=== PATIENT | male | born 1960 | race Caucasian/White ===

== ENCOUNTER 2016-10-31 09:49 | Observation (INO) ==
[2016-10-31] MEDS ORDERED: Aspirin 81 MG TAB.CHEW PO ONE (10:26)
--- NOTE | 2016-10-31 10:29 | Emergency Department Note ---
Disposition Clinical Impression: STEMI (ST elevation myocardial infarction) Qualifiers: Involved coronary artery: unspecified coronary artery Qualified Code(s): I21.3 - ST elevation (STEMI) myocardial infarction of unspecified site Disposition: Admitted As Inpatient Condition: Fair Time of Disposition: 13:00 Chest Pain HPI - General Chief Complaint: ED Recheck/Abnormal Lab/Rx Stated Complaint: OLEGARIO, sent from [facility] Time Seen by Provider: 10/31/16 10:10 Source: patient Mode of arrival: ambulatory Limitations: no limitations Vital Signs Reviewed: Yes Nursing Notes Reviewed: Yes - History of Present Illness HPI Narrative: Patient presents to the emergency department with complaints of shortness of breath. He states that he went to the urgent care to get a refill on his medications. He is a diabetic he currently takes metformin 1000 mg at at bedtime. He states that this morning he states they were more concerned with his shortness of breath and also that the swelling in his lower extremities. He is a very large obese man states that the swelling appears to be about the same as it always is. Once we got him to the emergency department he now is saying that he is having a little bit of dull achy midsternal slightly to the left of the sternal chest pain that radiates into his back. Not have any nausea vomiting no diaphoresis. He does have some pedal edema approximately 2+3 +. No previous history. He did bring his EKG that they did at the urgent care and we have repeated that since and obtain the old EKG in having interventionalists evaluate the EKG at this time. 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 Duration: intermittent Onset: during rest Pain Location: substernal, left chest Severity scale (1-10): 3 Quality: dull Pain Radiation: back Improves with: nothing Worsens with: nothing Treatments prior to arrival chest pain: none - Related Data Home Medications Medication Instructions Recorded Confirmed Aspirin 81 mg PO DAILY 07/29/15 10/31/16 Cholecalciferol (Vitamin D3) 5,000 unit PO DAILY 07/29/15 10/31/16 [Vitamin D] [place] Carbonate 900 mg PO HS 07/29/15 10/31/16 Metformin HCl [Glucophage] 1,000 mg PO DAILY 07/29/15 10/31/16 Ziprasidone [Geodon] 160 mg PO HS 07/29/15 10/31/16 Oxygen 2 l NS HS 10/31/16 10/31/16 Ziprasidone HCl [Geodon] 60 mg PO QAM 10/31/16 10/31/16 Allergies Allergy/AdvReac Type Severity Reaction Status Date / Time No Known Allergies Allergy Verified 10/31/16 09:58 All systems ED: reviewed and negative except as stated. Eyes: Denies: eye pain, eye discharge, vision change ENT ED: Denies: ear pain, throat pain, dental pain, hearing loss, epistaxis, congestion, dysphagia Cardiovascular: Reports: chest pain Respiratory: Denies: cough, dyspnea, wheezes, hemoptysis, stridor Gastrointestinal: Denies: abdominal pain, nausea, vomiting, diarrhea, constipation, hematemesis, melena, hematochezia Genitourinary: Denies: urgency, dysuria, frequency, hematuria Musculoskeletal: Denies: back pain, neck pain, arthralgia, myalgia Integumentary: Denies: rash, abrasion, lesions Chest Pain PMH - Past Medical History Medical history: Reports: DVT, diabetes, hyperlipidemia, hypertension Psychiatric history: Reports: anxiety, bipolar, depression - Social History Smoking Status: Current every day smoker Alcohol use: Reports: none Drug use: Reports: none Physical Exam - General Limitations: no limitations General appearance: alert, in no apparent distress - Head Head exam: atraumatic, normocephalic, normal inspection - Eye Eye exam: Present: normal appearance, PERRL, EOMI - ENT ENT exam: normal exam, normal oropharynx, mucous membranes moist - Neck Neck exam: Present: normal inspection, full ROM, trachea midline - Respiratory Respiratory exam: Present: normal lung sounds bilaterally - Cardiovascular Cardiovascular exam: Present: regular rate, normal heart sounds. Absent: systolic murmur, diastolic murmur, JVD - Abdominal Exam Abdominal exam: Present: soft, Non-Tender, normal bowel sounds. Absent: tenderness, distention, guarding, rebound, rigidity - Extremities Exam Extremities exam: Present: normal inspection, full ROM, pedal edema (3+). Absent: tenderness Course - Reevaluation(s) Reevaluation #1: explained to the patient labs, and procedures and work-up that will happen. Patient voiced understanding. Time: 10:40 - Consultations Consultation #1: Cardiology POTATO PANCAKE FRIER in the department to evaluate patient. Dr. Layne spoke with Dr. Collins. Entire STEMI workup done. Time: 10:49 Consultation #2: Discussed with , admit. Time: 11:26 Vital Signs Temperature 98.3 F 10/31/16 09:58 Pulse Rate 72 10/31/16 09:58 Respiratory Rate 16 10/31/16 09:58 Blood Pressure 152/77 10/31/16 09:58 O2 Sat by Pulse Oximetry 94 10/31/16 09:58 Temperature 98.2 F 10/31/16 13:03 Pulse Rate 61 10/31/16 13:03 Respiratory Rate 18 10/31/16 13:03 Blood Pressure 127/60 10/31/16 13:03 O2 Sat by Pulse Oximetry 98 10/31/16 13:03 Oxygen Delivery Oxygen Delivery Nasal Cannula Chest Pain - Lab Data Result diagrams: 10/31/16 10:35 10/31/16 10:35 Lab Results 10/31/16 10/31/16 10/31/16 Range/Units 10:35 10:35 10:35 WBC 7.7 (4.3-11.1) K/mcL RBC 4.22 (4.19-5.50) M/mcL Hgb 12.3 L (12.9-16.9) g/dL Hct 39.6 (37.5-50.1) % MCV 93.8 (83.0-100.0) fL MCH 29.1 (28.0-33.3) pg MCHC 31.1 L (31.6-35.5) g/dL RDW 13.7 (11.5-14.5) % Plt Count 195 (140-400) K/mcL MPV 10.5 (9.4-12.4) fL Immature Gran % 0.3 (0-4) % Seg Neutrophils % 71.2 % Lymphocytes % 20.4 % Monocytes % 6.3 % Eosinophils % 1.7 % Basophils % 0.1 % Neutrophils # 5.5 (1.6-8.9) K/mcL Lymphocytes # 1.6 (0.6-4.6) K/mcL Monocytes # 0.5 (0.0-1.3) K/mcL Eosinophils # 0.1 (0.0-0.6) K/mcL Basophils # 0.0 (0.0-0.2) K/mcL PT 12.3 H (9.4-12.1) Seconds INR 1.1 APTT 30.3 (26.0-36.0) Seconds Sodium (136-145) mEq/L Potassium (3.5-4.5) mEq/L Chloride (98-109) mEq/L Carbon Dioxide (19-29) mEq/L BUN (8-26) mg/dL Creatinine (0.72-1.25) mg/dL Est GFR ( Amer) (> 60) Est GFR (Non-Af Amer) (> 60) BUN/Creatinine Ratio (6-26) Glucose (70-99) mg/dL Calculated Osmolality (280-300) Calcium (8.6-10.8) mg/dL Troponin I (0-0.03) ng/mL Amylase 51 (25-125) Units/L Lipase 23 (8-78) Units/L 10/31/16 10/31/16 Range/Units 10:35 10:35 WBC (4.3-11.1) K/mcL RBC (4.19-5.50) M/mcL Hgb (12.9-16.9) g/dL Hct (37.5-50.1) % MCV (83.0-100.0) fL MCH (28.0-33.3) pg MCHC (31.6-35.5) g/dL RDW (11.5-14.5) % Plt Count (140-400) K/mcL MPV (9.4-12.4) fL Immature Gran % (0-4) % Seg Neutrophils % % Lymphocytes % % Monocytes % % Eosinophils % % Basophils % % Neutrophils # (1.6-8.9) K/mcL Lymphocytes # (0.6-4.6) K/mcL Monocytes # (0.0-1.3) K/mcL Eosinophils # (0.0-0.6) K/mcL Basophils # (0.0-0.2) K/mcL PT (9.4-12.1) Seconds INR APTT (26.0-36.0) Seconds Sodium 140 (136-145) mEq/L Potassium 4.3 (3.5-4.5) mEq/L Chloride 108 (98-109) mEq/L Carbon Dioxide 28 (19-29) mEq/L BUN 13 (8-26) mg/dL Creatinine 0.87 (0.72-1.25) mg/dL Est GFR ( Amer) > 60 (> 60) Est GFR (Non-Af Amer) > 60 (> 60) BUN/Creatinine Ratio 15 (6-26) Glucose 109 H (70-99) mg/dL Calculated Osmolality 291 (280-300) Calcium 10.7 (8.6-10.8) mg/dL Troponin I 0.00 (0-0.03) ng/mL Amylase (25-125) Units/L Lipase (8-78) Units/L Heart Score - Score History: Highly Suspicious EKG: Non Specific repolarisation Disturbance Age: 45-65 Risk Factors: 1-2 risk factors Attestation Statement - Attestation Attestation: For this encounter, I have reviewed the POTATO PANCAKE FRIER or PA documentation, treatment plan, and medical decision making; and I have had face to face time with this patient. 55-year-old comes in complaining of pain in his back through to his chest. The patient was seen by his family doctor today and of they did an EKG showed some ST segment elevation. Patient was then sent here. Physical examination the lungs are clear. Cardiovascular exam is regular rate and rhythm. EKG was obtained there was some ST segment elevation without reciprocal changes. The EKG was reviewed by interventionalists Dr. Layne who does not feel as a STEMI. Recommends admission to the hospitalist for further evaluation and treatment.
[2016-10-31] MEDS: Nitroglycerin 0.4 MG TAB.SUBL SL ONE ×3 (10:31→10:53)
[2016-10-31] MEDS ORDERED: 0.9 % Sodium Chloride 1,000 ML IVC ONE (10:35)
[2016-10-31] MEDS ORDERED: *HR* Heparin 5,000 UNIT/ML VIAL IVP ONE (10:39)
[2016-10-31] MEDS ORDERED: *HR* Ticagrelor 90 MG TABLET PO ONE (10:39)
[2016-10-31 10:48] LABS: Basophils % 0.1 %; Eosinophils # 0.1 K/mcL (0.0-0.6); Eosinophils % 1.7 %; Hematocrit 39.6 % (37.5-50.1); Hemoglobin 12.3 g/dL (12.9-16.9); Immature Granulocytes % 0.3 % (0-4); Lymphocytes # 1.6 K/mcL (0.6-4.6); Lymphocytes % 20.4 %; Mean Corpuscular HGB Conc 31.1 g/dL (31.6-35.5); Mean Corpuscular Hemoglobin 29.1 pg (28.0-33.3); Mean Corpuscular Volume 93.8 fL (83.0-100.0); Mean Platelet Volume 10.5 fL (9.4-12.4); Monocytes # 0.5 K/mcL (0.0-1.3); Monocytes % 6.3 %; Neutrophils # 5.5 K/mcL (1.6-8.9); Platelet Count 195 K/mcL (140-400); Red Blood Count 4.22 M/mcL (4.19-5.50); Red Cell Distribution Width 13.7 % (11.5-14.5); Segmented Neutrophils % 71.2 %
[2016-10-31] MEDS ORDERED: *HR* Heparin 10,000 UNIT/10 ML VIAL ONE (10:48)
[2016-10-31] MEDS ORDERED: Heparin 1,000 UNITS/500 mL NS 0 ML ONE (10:48)
[2016-10-31] MEDS ORDERED: Nitroglycerin 1,000 MCG/10 ML VIAL IV ONE (10:48)
[2016-10-31 10:56] LABS: INR 1.1; Prothrombin Time 12.3 Seconds (9.4-12.1)
[2016-10-31 10:58] LABS: Activated Partial Thrombo Time 30.3 Seconds (26.0-36.0)
[2016-10-31 11:01] LABS: BUN/Creatinine Ratio 15 (6-26); Blood Urea Nitrogen 13 mg/dL (8-26); Calcium 10.7 mg/dL (8.6-10.8); Carbon Dioxide 28 mEq/L (19-29); Chloride 108 mEq/L (98-109); Glucose 109 mg/dL (70-99); Osmolality,Calculated 291 (280-300); Potassium 4.3 mEq/L (3.5-4.5); Sodium 140 mEq/L (136-145); eGFR For African Americans > 60 (> 60); eGFR For Non-African Americans > 60 (> 60)
[2016-10-31 11:03] LABS: Amylase 51 Units/L (25-125); Lipase 23 Units/L (8-78)
[2016-10-31] MEDS ORDERED: Acetaminophen 325 MG TABLET PO PRN (11:48)
[2016-10-31] MEDS ORDERED: Naloxone 0.4 MG/ML INJ IVP PRN (11:48)
[2016-10-31] MEDS ORDERED: *HR* Morphine 2 MG/ML SYRINGE IVP PRN (11:48)
[2016-10-31] MEDS ORDERED: D5% in Water 1,000 ML IVC PRN (11:52)
[2016-10-31] MEDS ORDERED: *HR* Dextrose 50 % in Water (Syg) 50 ML SYRINGE IVP PRN (11:52)
[2016-10-31] MEDS ORDERED: Dextrose Gel 15 GM PO PRN ×2 (11:52)
--- NOTE | 2016-10-31 11:56 | Internal Med History&Physical ---
<Nini Khan Ze - Last Filed: 10/31/16 13:09> Date of Encounter: 10/31/16 Time of Encounter: 11:54 Assessment and Plan (1) Chest pain Current visit: Yes Status: Acute with transient chest pain upon arrival to ED. There was concern for acute MT and STEMI alert called. He was given ASA, heparin and brilinta in the ED. Evaluated by Automation Test Developer in ED who did not suspect ACS. Initial troponin negative. Discussed case with Cardiology VARIETY SAW OPERATOR; cycle troponin, check echo. May need [facility] this admission. Cont ASA. Lipid panel, Hgb A1c pending Qualifiers: Chest pain type: other chest pain Qualified Code(s): R07.89 - Other chest pain; R07.8 - Other chest pain (2) Lower extremity edema Current visit: Yes Status: Acute chronic per patient. Not on lasix at home. Does not appear overtly overloaded. BNP, echo, lower ext doppler, hepatic panel pending Qualifiers: Laterality: bilateral Qualified Code(s): R60.0 - Localized edema (3) Diabetes Current visit: Yes Status: Acute per hx. Control unknown. Hold home metformin. SSI, monitor blood sugar and titrate PRN Qualifiers: Diabetes mellitus type: type 2 Diabetes mellitus complication status: without complication Diabetes mellitus intermediate frame tender insulin use: without fci use Qualified Code(s): E11.9 - Type 2 diabetes mellitus without complications (4) DVT prophylaxis Current visit: Yes Status: Acute [facility] Internal Medicine - H&P: HPI Chief complaint: shortness of breath Admitted From: Home History of present illness: Mr. Lam is a 55 year old male with PMH diabetes, bipolar and morbid obesity who presented to outside urgent care for medication refill. An ECG was done and was concerning for acute MT, therefore he was transferred to [facility] for Cardiac evaluation. Information obtained from chart review and patient report. Patient says he doesn't have a PCP, gets medications filled at local urgent care. Wanted his Geodon filled and an EKG was done to ensure no QT prolongation and there was concern for ST elevation so he was to to ED. Patient actually denies CP on my exam. Says he did have some SOB but says he gets SOB with activity, no SOB on my exam. He also reports lower extremity edema, has been present for years. Was on lasix in the past but not currently on diuetic. Past Med Surg Social Fam HX - Past Medical History Medical history: DVT, diabetes, hyperlipidemia, hypertension Psychiatric history: anxiety, bipolar, depression - Past Surgical History Surgical History: non-contributory - Social History Smoking Status: Current every day smoker Smokeless Tobacco Status: No Alcohol use: none Drug use: none - Additional Family History Additional family history: Reviewed and non-contributory. Denies CAD in family Internal Medicine - H&P: Meds Aspirin 81 mg PO DAILY 07/29/15 [History] Cholecalciferol (Vitamin D3) [Vitamin D] 5,000 unit PO DAILY 07/29/15 [History] [place] Carbonate 900 mg PO HS 07/29/15 [History] Metformin HCl [Glucophage] 1,000 mg PO DAILY 07/29/15 [History] Ziprasidone [Geodon] 160 mg PO HS 07/29/15 [History] Oxygen 2 l NS HS 10/31/16 [History] Ziprasidone HCl [Geodon] 60 mg PO QA 10/31/16 [History] Allergies No Known Allergies Allergy (Verified 10/31/16 09:58) All Systems PM: A 10-system review of systems was performed and is negative for pertinent findings except as documented above in the HPI. - Constitutional Constitutional: no chills, no fever(s), no night sweats - EENT Eyes: no change in vision, no discharge, no pain, no photophobia Ears: no ear discharge, no ear pain, no tinnitus Nose, mouth and throat: no dysphagia, no nasal discharge, no neck pain, no sore throat - Cardiovascular Cardiovascular ROS IM: no chest pain, no diaphoresis, no dyspnea, no lightheadedness, no palpitations, no syncope - Respiratory Respiratory: dyspnea, dyspnea on exertion, no cough, no wheezing, no excessive phlegm production - Gastrointestinal Gastrointestinal: no abdominal pain, no diarrhea, no hematemesis, no hematochezia, no melena, no nausea, no vomiting - Musculoskeletal Musculoskeletal ROS IM: no numbness, no tingling - Integumentary Integumentary IM: no rash, no unusual bruising - Neurological Neurological ROS: no confusion, no convulsions, no focal weakness, no numbness, no tingling, no tremor(s) - Hematologic/Lymphatic Hematologic/Lymphatic: no easy bruising - Constitutional Vitals: Temp Pulse Resp BP Pulse Ox 98.3 F 63 22 125/78 95 10/31/16 09:58 10/31/16 11:00 10/31/16 11:00 10/31/16 11:00 10/31/16 11:00 General appearance: Present: A&O X 3, morbidly obese, no acute distress - Head Head exam: Present: atraumatic, normocephalic - Eye Eye exam: Present: PERRL, conjuntiva pink, sclera anicteric Pupils: Present: PERRL - Neck Neck exam general surgery: Present: supple, trachea midline. Absent: lymphadenopathy - Respiratory Respiratory exam: Present: decreased breath sounds, CTAB. Absent: accessory muscle use, rales, rhonchi, wheezes - Cardiovascular Cardiovascular exam: Present: RRR, +S1, +S2. Absent: diastolic murmur, gallop, rubs, systolic murmur - GI/Abdominal GI/Abdominal exam: Present: normal bowel sounds, soft, no peritoneal signs. Absent: distended, tenderness - Extremities Exam Extremities exam: Present: warm, radial pulses palpable and symetrical. Absent : calf tenderness, cyanotic, pedal edema - Neurological Exam Neurological exam: Present: CN II-XII intact, oriented X3, no focal deficits. Absent: pronater drift, facial droop, speech deficit - Skin Skin exam: Present: dry, intact Internal Med - H&P Results - Labs CBC & Chem 7: 10/31/16 10:35 10/31/16 10:35 <Ketty Salas - Last Filed: 10/31/16 16:22> Date of Encounter: 10/31/16 Time of Encounter: 12:20 Internal Medicine - H&P: HPI History of present illness: Mr. Lam is a 55 year old male All Systems PM: A 10-system review of systems was performed and is negative for pertinent findings except as documented above in the HPI. - Constitutional Vitals: Temp Pulse Resp BP Pulse Ox 98.4 F 67 18 138/84 95 10/31/16 15:50 10/31/16 15:50 10/31/16 15:50 10/31/16 15:50 10/31/16 15:50 Internal Med - H&P Results - Labs CBC & Chem 7: 10/31/16 10:35 10/31/16 10:35 Labs: Cardiac Enzymes 10/31/16 Range/Units 12:50 Troponin I 0.01 (0-0.03) ng/mL - Attending Attestation I examined this patient and my medical decision-making was reviewed with the nurse practitioner. I agree with the documented history of present illness, review of systems, past medical, surgical social and family histories and examination findings, disposition and treatment plan as described above except to any changes set forth below. 55-year-old male patient with history of diabetes, hypertension, hyperlipidemia who was seen in urgent care to get a prescription refill for ziprasidone was sent to the ER here with abnormal EKG. Patient describes a history of intermittent chest heaviness. Improved now. EKG shows nonspecific ST segment elevation in lateral leads. Precordial chest pain with abnormal EKG: Cardiology consulted. Cardiology recommends observation as patient is EKG does not appear to suggest ST elevation MT. Trend troponins. Telemetry monitoring. If troponins negative, plan for stress test in a.m. High-risk for complications. Chronic bilateral lower extremity edema: Normal BNP. We will get 2-D echo and lower extremity Doppler. Could be from venous stasis. Diabetes mellitus type 2: A1c 6%. Diabetic diet. Sliding scale insulin. Monitor blood sugars. Morbid obesity: Recommend diet control and weight loss.
--- NOTE | 2016-10-31 13:27 | Cardiology Consult Note ---
<Caleb Staples - Last Filed: 10/31/16 13:31> Date of Encounter: 10/31/16 Time of Encounter: 10:45 Assessment and Plan (1) Chest pain Current Visit: Yes Status: Acute Chest pain rule out. Typical chest pain symptoms. Cardiac risk factors include DM type II, HTN, and HLD. No previous history of CAD. EKG reviewed with interventional cardiology and found to be not concerning for STEMI. Troponin negative x1. Continue to trend troponin. Check TTE. If troponin negative will consider stress test in am. Aggressive risk factor modification. Qualifiers: Chest pain type: other chest pain Qualified Code(s): R07.89 - Other chest pain; R07.8 - Other chest pain Discussion w patient/family: The assessment and plan as outlined above was discussed with the patient and/or family members who expressed understanding and agreement. All questions were answered. Thank you for involving us in the care of your patient. Please call with any questions. History of Present Illness Consult date: 10/31/16 Consult reason: Abnormal EKG Chief complaint: SOB, chest pain History of present illness: Mr. Lam is a 55 year old male with a history of DM type II, HLD, obesity, and LAURITA on c-pap who was sent to the ED from urgent care after he was found to have an abnormal EKG. He visited the urgent care to obtain refill on his prescriptions since he has not seen his PCP in a long time. He admitted to SOB with activity and BLE. He reports symptoms are chronic and he thought it was due to his weight. Symptoms have been intermittent over the last three years. While in the ED he developed a mild midsternal chest discomfort radiating to his back. Chest pain was relieved with 2 SL NTG and baby aspirin. His EKG showed borderline T wave changes in the inferior leads when compared to EKG one year ago. EKG reviewed with interventional cardiology and EKG was not concerning for STEMI. On my exam he is chest pain free. He continues to have midscapular pain. He states the pain is new. He admits to chest pain with exertion that relieves with rest. Past Med Surg Social Fam HX - Past Medical History Medical history: DVT, diabetes, hyperlipidemia, hypertension Psychiatric history: anxiety, bipolar, depression - Past Surgical History Surgical History: non-contributory - Social History Smoking Status: Current every day smoker Smokeless Tobacco Status: No Alcohol use: none Drug use: none Medications and Allergies Aspirin 81 mg PO DAILY 07/29/15 [History] Cholecalciferol (Vitamin D3) [Vitamin D] 5,000 unit PO DAILY 07/29/15 [History] [place] Carbonate 900 mg PO HS 07/29/15 [History] Metformin HCl [Glucophage] 1,000 mg PO DAILY 07/29/15 [History] Ziprasidone [Geodon] 160 mg PO HS 07/29/15 [History] Oxygen 2 l NS HS 10/31/16 [History] Ziprasidone HCl [Geodon] 60 mg PO QAM 10/31/16 [History] Allergies No Known Allergies Allergy (Verified 10/31/16 09:58) All Systems Review: A 10-system review of systems was performed and is negative for pertinent findings except as documented above in the HPI. Physical Examination Vital Signs, Last 4 Hours Temp Pulse Resp BP Pulse Ox 10/31/16 13:03 98.2 F 61 18 127/60 98 10/31/16 11:52 22 107/57 General: Conversant, No Apparent Distress, Other (obese male) HEENT: Atraumatic, Normocephaly, Mucus Membranes Moist Neck: No JVD, Normal carotid pulses Cardiac: Reg Rate and Rhythm, Normal S1 and S2, No Murmur Lungs: Normal Breath Sounds, No Wheeze, Rales, Rhonchi Neuro: Alert and responsive, No focal deficits noted Abdomen: Soft, Non-Tender Skin: No rashes noted on visualized skin Musculoskeletal: No Chest Wall Tenderness Extremities: No Clubbing, No Cyanosis, Normal Pulses, Other (1+ edema up to bilateral mid [place].) Results 10/31/16 10:35 10/31/16 10:35 - EKG Interpretation EKG results cardiology: personally reviewed (SR with < [address] elevation in inferior leads that is not consistant. Baseline EKg was not normal with similair findings one year ago.) Consult Discharge Plan - Plan Referrals: NO,PCP [Primary Care Provider] - <Ivis Vazquez - Last Filed: 10/31/16 18:18> Date of Encounter: 10/31/16 Assessment and Plan Discussion w patient/family: The assessment and plan as outlined above was discussed with the patient and/or family members who expressed understanding and agreement. All questions were answered. Thank you for involving us in the care of your patient. Please call with any questions. History of Present Illness History of present illness: Mr. Lam is a 55 year old male All Systems Review: A 10-system review of systems was performed and is negative for pertinent findings except as documented above in the HPI. Physical Examination Vital Signs, Last 4 Hours Temp Pulse Resp BP Pulse Ox 10/31/16 15:50 98.4 F 67 18 138/84 95 Results 10/31/16 10:35 10/31/16 10:35 Lab Results 10/31/16 10/31/16 12:50 12:50 Troponin I 0.01 B-Natriuretic Peptide 16 - Attending Attestation I examined this patient and my medical decision-making was reviewed with the SOCKET PULLER/PA/Advanced Practice Nurse/Resident Physician. I agree with the documented findings, disposition and treatment plan. Admitted for chest pain. ECG reviewed - does not demonstrate acute findings. Agree with observation, trend troponins, echo and medical management for now. Consider stress test in AM.
[2016-10-31] MEDS: Insulin LISPRO 300 UNITS/3 ML VIAL SQ SCH ×2 (16:18→20:26)
[2016-10-31] MEDS: Ziprasidone 80 MG CAPSULE PO SCH (20:25)
[2016-10-31] MEDS: Lithium Carbonate 300 MG CAPSULE PO SCH (20:25)
[2016-11-01 01:34] LABS: Basophils % 0.3 %; Eosinophils # 0.2 K/mcL (0.0-0.6); Eosinophils % 1.9 %; Hematocrit 38.1 % (37.5-50.1); Immature Granulocytes % 0.3 % (0-4); Lymphocytes # 1.7 K/mcL (0.6-4.6); Lymphocytes % 22.1 %; Mean Corpuscular HGB Conc 31.5 g/dL (31.6-35.5); Mean Corpuscular Hemoglobin 29.5 pg (28.0-33.3); Mean Corpuscular Volume 93.6 fL (83.0-100.0); Monocytes # 0.5 K/mcL (0.0-1.3); Monocytes % 6.1 %; Neutrophils # 5.4 K/mcL (1.6-8.9); Platelet Count 213 K/mcL (140-400); Red Blood Count 4.07 M/mcL (4.19-5.50); Red Cell Distribution Width 13.7 % (11.5-14.5); Segmented Neutrophils % 69.3 %
[2016-11-01 01:51] LABS: Alanine Aminotransferase 38 Units/L (0-55); Albumin 3.4 g/dL (3.5-5.0); Albumin/Globulin Ratio 1.1 (1.1-2.2); Alkaline Phosphatase 76 Units/L (38-126); Aspartate Amino Transferase 47 Units/L (5-34); BUN/Creatinine Ratio 18 (6-26); Bilirubin,Total 1.7 mg/dL (0.2-1.2); Blood Urea Nitrogen 15 mg/dL (8-26); Calcium 10.4 mg/dL (8.6-10.8); Carbon Dioxide 27 mEq/L (19-29); Chloride 109 mEq/L (98-109); Chol/HDL Ratio 6.4 (0-4.9); Cholesterol 141 mg/dL (< 200); Globulin 3.2 g/dL (2.4-3.5); Glucose 105 mg/dL (70-99); HDL Cholesterol 22 mg/dL (40-59); LDL Cholesterol,Calculated 85 mg/dL (0-99); Osmolality,Calculated 295 (280-300); Sodium 142 mEq/L (136-145); Total Protein 6.6 g/dL (6.0-8.3); Triglycerides 170 mg/dL (< 150); eGFR For African Americans > 60 (> 60); eGFR For Non-African Americans > 60 (> 60)
[2016-11-01 01:52] LABS: Albumin 3.4 g/dL (3.5-5.0); Albumin/Globulin Ratio 1.1 (1.1-2.2); Bilirubin,Direct 0.6 mg/dL (0.0-0.5); Bilirubin,Indirect 1.1 mg/dL (0.0-1.2); Bilirubin,Total 1.7 mg/dL (0.2-1.2); Globulin 3.2 g/dL (2.4-3.5); Total Protein 6.6 g/dL (6.0-8.3)
[2016-11-01 01:53] LABS: % Iron Saturation 13 % (20-55); Iron 53 mcg/dL (65-175); Transferrin 282 mg/dL (174-364)
[2016-11-01] MEDS ORDERED: *HR* Enoxaparin 40 MG/0.4 ML SYRINGE SQ SCH (06:00)
--- NOTE | 2016-11-01 07:00 | Venous Imaging Report ---
LE Venous Duplex Patient Name:Seth Lam Order Number:[id number] Procedure Date:10/31/2016 Date:1960ge:55 yrs Gender:Male Height: cm / inWeight:155.13 kg / 342.01 lb Location:[facility] Room #: 2NE25 Valve Inspector:Danielle Reyna RDCS Referring MD:Nini Khan CNP healthcare associate:None Reading MD:Gurvinder Blankenship MD Primary Indications:Edema Secondary Indications: Risk Factors Yes/No Hx of DVT Yes Impressions: Normal bilateral lower extremity deep and superficial venous exam. Recommendations: Preliminary given to Pt RNLisa. Findings Venous Duplex Results: Right: Venous imaging of the lower extremity reveals full patency and normal vessel compressibility of the right distal iliac, right common femoral, right superficial femoral, right popliteal, right posterior tibial, right peroneal, right great saphenous and right lesser saphenous. Doppler signals in the evaluated veins were normal. Left: Venous imaging of the lower extremity reveals full patency and normal vessel compressibility of the left distal iliac, left common femoral, left superficial femoral, left popliteal, left posterior tibial, left great saphenous and left lesser saphenous. Doppler signals in the evaluated veins were normal. Prior Study: No prior study available for comparison. Lower Extremity Venous Duplex Side Vein Compress Spontaneous Flow Augment Diameter (cm) Depth (cm) Right Distal Iliac Normal Yes Phasic Yes Right Common Femoral Normal Yes Phasic Yes Right Superficial Femoral Normal Yes Phasic Yes Right Popliteal Normal Yes Phasic Yes Right Posterior Tibial Normal Yes Phasic Yes Right Peroneal Normal Yes Phasic Yes Right Great Saphenous Normal Yes Phasic Yes Right Lesser Saphenous Normal Yes Phasic Yes Left Distal Iliac Normal Yes Phasic Yes Left Common Femoral Normal Yes Phasic Yes Left Superficial Femoral Normal Yes Phasic Yes Left Popliteal Normal Yes Phasic Yes Left Posterior Tibial Normal Yes Phasic Yes Left Great Saphenous Normal Yes Phasic Yes Left Lesser Saphenous Normal Yes Phasic Yes Updated by Gurvinder Blankenship MD on 11/01/2016 6:56:33 AM electronically signed on 11/01/2016 6:57:06 AM with status of Final
[2016-11-01] MEDS ORDERED: Regadenoson 0.4 MG/5 ML SYRINGE IVP ONE (08:14)
[2016-11-01] MEDS: Insulin LISPRO 300 UNITS/3 ML VIAL SQ SCH ×4 (09:01→21:20)
[2016-11-01] MEDS: Aspirin 81 MG TAB.CHEW PO SCH (10:20)
[2016-11-01] MEDS: Ziprasidone 20 MG CAPSULE PO SCH (10:20)
--- NOTE | 2016-11-01 12:37 | Cardiology Progress Note ---
Date of Encounter: 11/01/16 Time of Encounter: 12:32 Assessment and Plan (1) Chest pain Current Visit: Yes Status: Acute Chest pain rule out. Typical chest pain symptoms. Cardiac risk factors include DM type II, HTN, and HLD. No previous history of CAD. EKG reviewed with interventional cardiology and found to be not concerning for STEMI. NSR. Troponin negative x3. TTE EF 60-65%, mild LVH. Moderate diastolic dysfuction. RV mildly dilated with normal function. Moderately dilated bilateral atrium. No pulmonary hypertension. No significant valvular disease. Venous doppler negative . Telemetry review shows NSR with avg HR 69 bpm. No VT or significant bradycardia seen. 2 day stress test was ordered this morning. Agressive risk factor modification. Qualifiers: Chest pain type: other chest pain Qualified Code(s): R07.89 - Other chest pain; R07.8 - Other chest pain (2) Lower extremity edema Current Visit: Yes Status: Acute C/o BLE edema. Appears to be chronic. He has moderate diastolic dysfunction that may be contributing to his BLE edema. Low sodium diet recommended. Give one time dose of lasix. Continue to monitor. Qualifiers: Laterality: bilateral Qualified Code(s): R60.0 - Localized edema Discussion w patient/family: The assessment and plan as outlined above was discussed with the patient and/or family members who expressed understanding and agreement. All questions were answered. Thank you for involving us in the care of your patient. Please call with any questions. Subjective Principal diagnosis: Chest pain Interval history: Pt with no chest pain. Seen undergoing stress. He is a two day stress. Objective Vital Signs Temp Pulse Resp BP Pulse Ox 11/01/16 07:38 129/72 11/01/16 07:00 68 18 93 11/01/16 03:19 97.9 F 62 16 111/55 96 10/31/16 23:41 97.9 F 64 20 119/56 95 10/31/16 20:30 96 10/31/16 18:55 99.2 F 68 128/62 96 10/31/16 15:50 98.4 F 67 18 138/84 95 10/31/16 13:03 98.2 F 61 18 127/60 98 Intake and Output 10/31/16 11/01/16 11/01/16 23:59 07:59 15:59 Intake Total 1130 / 1130 0 / 0 Output Total 1050 / 1050 800 / 800 Balance 80 / 80 -800 / -800 Intake: Oral 1130 / 1130 0 / 0 Output: Urine 1050 / 1050 800 / 800 Other: Meal Dinner Percent of Meal Consumed 100% Stool Consistency soft # Bowel Movements 1 Weight 153.7 kg Blood Glucose* 154 130 145 Patient Weight 11/01/16 23:59 Weight 153.7 kg General: Conversant, No Apparent Distress, Other (morbidley obese male) HEENT: Atraumatic, Normocephaly, Mucus Membranes Moist Neck: No JVD, Normal carotid pulses Cardiac: Reg Rate and Rhythm, Normal S1 and S2, No Murmur Lungs: Normal Breath Sounds, No Wheeze, Rales, Rhonchi Neuro: Alert and responsive, No focal deficits noted Abdomen: Soft, Non-Tender Skin: No rashes noted on visualized skin Musculoskeletal: No Chest Wall Tenderness Extremities: No Clubbing, No Cyanosis, Normal Pulses, Other (1+ ankle edema) Results 11/01/16 00:25 11/01/16 00:25 Lab Results 10/31/16 10/31/16 11/01/16 12:50 12:50 00:25 WBC Hgb Hct Plt Count Sodium Potassium Chloride Carbon Dioxide BUN Creatinine Glucose Calcium Total Bilirubin AST ALT Alkaline Phosphatase Troponin I 0.01 0.01 B-Natriuretic Peptide 16 11/01/16 11/01/16 11/01/16 00:25 00:25 00:25 WBC 7.8 Hgb 12.0 L Hct 38.1 Plt Count 213 Sodium 142 Potassium 4.0 Chloride 109 Carbon Dioxide 27 BUN 15 Creatinine 0.85 Glucose 105 H Calcium 10.4 Total Bilirubin 1.7 H 1.7 H AST 47 H 47 H ALT 38 38 Alkaline Phosphatase 76 75 Troponin I B-Natriuretic Peptide - Imaging and Cardiology Echo: report reviewed Consult Discharge Plan - Plan Referrals: NO,PCP [Primary Care Provider] -
[2016-11-01] MEDS ORDERED: Furosemide 20 MG TABLET PO ONE (12:45)
--- NOTE | 2016-11-01 13:21 | Internal Med Progress Note ---
<Elia Calles Emanuel - Last Filed: 11/01/16 13:17> Date of Encounter: 11/01/16 Time of Encounter: 13:18 - Assessment and plan (1) Chest pain Current Visit: Yes Status: Acute Assessment and plan: Chest pain-free at this time. EKG reviewed and showed some ST changes in the inferior leads, troponins negative. Patient had a one of the 2 day stress test this morning, finished stress test tomorrow morning. Echo showed EF of 60-65%, moderate LV diastolic dysfunction, biatrial moderate dilatation. Continue aspirin, statin. Qualifiers: Chest pain type: other chest pain Qualified Code(s): R07.89 - Other chest pain; R07.8 - Other chest pain (2) Diabetes Current Visit: Yes Status: Acute Assessment and plan: Blood sugars were not under good control. Hemoglobin A1c was 6.0. Continue with low-dose sliding scale as needed. Qualifiers: Diabetes mellitus type: type 2 Diabetes mellitus complication status: without complication Diabetes mellitus rn long term care insulin use: without rn long term care use Qualified Code(s): E11.9 - Type 2 diabetes mellitus without complications (3) Obstructive sleep apnea Current Visit: Yes Status: Acute Assessment and plan: Continue CPAP at night. (4) Bipolar disorder Current Visit: Yes Status: Acute Assessment and plan: Patient has a history of bipolar disorder on Geodon and lithium. Apparently when the patient has been out of his medications in the past he has had psychotic breaks. No evidence of psychosis at this time. Continue home medications. We will continue to monitor. Minimize interruptions at night. Qualifiers: Active/Remission status: in remission of unspecified degree Qualified Code( s): F31.70 - Bipolar disorder, currently in remission, most recent episode unspecified (5) DVT prophylaxis Current Visit: Yes Status: Acute Assessment and plan: Lovenox 40 mg subcutaneous daily. - Subjective Interval history: Patient seen and examined at bedside. Patient has no complaints at this time. He states he feels pretty good. He denies chest pain, shortness of breath, lower extremity swelling. - Constitutional Vitals: Temp Pulse Resp BP Pulse Ox 97.9 F 68 18 129/72 93 11/01/16 03:19 11/01/16 07:00 11/01/16 07:00 11/01/16 07:38 11/01/16 07:00 General appearance: Present: A&O X 3, morbidly obese, no acute distress - Respiratory Respiratory exam: Present: CTAB. Absent: rales, rhonchi, wheezes - Cardiovascular Cardiovascular exam: Present: RRR. Absent: gallop, rubs, systolic murmur - GI/Abdominal GI/Abdominal exam: Present: normal bowel sounds, soft. Absent: distended, tenderness - Extremities Exam Extremities exam: Present: warm. Absent: pedal edema, tenderness - Neurological Exam Neurological exam: Present: alert, CN II-XII intact, oriented X3, no focal deficits - Psychiatric Psychiatric exam: Present: normal affect, normal mood. Absent: agitated, anxious Internal Medicine: Result - Labs CBC & Chem 7: 11/01/16 00:25 11/01/16 00:25 Labs: Short CBC 11/01/16 Range/Units 00:25 WBC 7.8 (4.3-11.1) K/mcL Hgb 12.0 L (12.9-16.9) g/dL Hct 38.1 (37.5-50.1) % Plt Count 213 (140-400) K/mcL Neutrophils # 5.4 (1.6-8.9) K/mcL BMP 11/01/16 00:25 Sodium 142 Potassium 4.0 Chloride 109 Carbon Dioxide 27 BUN 15 Creatinine 0.85 Glucose 105 H Calcium 10.4 Cardiac Enzymes 10/31/16 11/01/16 Range/Units 12:50 00:25 Troponin I 0.01 0.01 (0-0.03) ng/mL Liver Function 11/01/16 11/01/16 Range/Units 00:25 00:25 Total Bilirubin 1.7 H 1.7 H (0.2-1.2) mg/dL Direct Bilirubin 0.6 H (0.0-0.5) mg/dL AST 47 H 47 H (5-34) Units/L ALT 38 38 (0-55) Units/L Alkaline Phosphatase 76 75 (38-126) Units/L Albumin 3.4 L 3.4 L (3.5-5.0) g/dL - ABG Interpretation ABG results: PT/INR, D-dimer PT 12.3 Seconds (9.4-12.1) H 10/31/16 10:35 Consult Discharge Plan - Plan Referrals: NO,PCP [Primary Care Provider] - <Fernando Mary P - Last Filed: 11/01/16 18:09> Date of Encounter: 11/01/16 - Constitutional Vitals: Temp Pulse Resp BP Pulse Ox 97.9 F 75 18 148/82 97 11/01/16 03:19 11/01/16 16:35 11/01/16 16:35 11/01/16 16:35 11/01/16 16:35 Internal Medicine: Result - Labs CBC & Chem 7: 11/01/16 00:25 11/01/16 00:25 Labs: Short CBC 11/01/16 Range/Units 00:25 WBC 7.8 (4.3-11.1) K/mcL Hgb 12.0 L (12.9-16.9) g/dL Hct 38.1 (37.5-50.1) % Plt Count 213 (140-400) K/mcL Neutrophils # 5.4 (1.6-8.9) K/mcL BMP 11/01/16 00:25 Sodium 142 Potassium 4.0 Chloride 109 Carbon Dioxide 27 BUN 15 Creatinine 0.85 Glucose 105 H Calcium 10.4 Cardiac Enzymes 11/01/16 Range/Units 00:25 Troponin I 0.01 (0-0.03) ng/mL Liver Function 11/01/16 11/01/16 Range/Units 00:25 00:25 Total Bilirubin 1.7 H 1.7 H (0.2-1.2) mg/dL Direct Bilirubin 0.6 H (0.0-0.5) mg/dL AST 47 H 47 H (5-34) Units/L ALT 38 38 (0-55) Units/L Alkaline Phosphatase 76 75 (38-126) Units/L Albumin 3.4 L 3.4 L (3.5-5.0) g/dL - ABG Interpretation ABG results: PT/INR, D-dimer PT 12.3 Seconds (9.4-12.1) H 10/31/16 10:35 - Attending Attestation I examined this patient and my medical decision-making was reviewed with the WOOD HEEL CEMENTER/PA/Advanced Practice Nurse/Resident Physician. I agree with the documented findings, disposition and treatment plan as described except to the extent set forth below. cardiology input appreciated.
[2016-11-01] MEDS: Ziprasidone 80 MG CAPSULE PO SCH (20:30)
[2016-11-01] MEDS: Lithium Carbonate 300 MG CAPSULE PO SCH (20:30)
[2016-11-02] MEDS: *HR* Enoxaparin 40 MG/0.4 ML SYRINGE SQ SCH (09:10)
[2016-11-02] MEDS: Ziprasidone 20 MG CAPSULE PO SCH (09:10)
[2016-11-02] MEDS: Aspirin 81 MG TAB.CHEW PO SCH (09:10)
[2016-11-02] MEDS: Insulin LISPRO 300 UNITS/3 ML VIAL SQ SCH ×4 (09:17→22:46)
--- NOTE | 2016-11-02 12:15 | Nuclear Medicine Stress Report ---
Regadenoson Nuclear 2 Name: Seth Lam Date of Study: 11/01/2016 Date: 1960 Ht: 68.0 in Medical Record#: [id number] Age: 55 Wt: 348.0 lb Gender: Male Order #: [id number] Location: [facility] Room: 2NE25 Supervising Provider: Tristen Talavera CNP Reading Physician: Elia Benson MD, [facility] Ordering Physician: Fernando Mary MD Primary Care Physician: None Stress Technologist: Clifford Garcia RADIO ANTENNA INSTALLER, CCT Polymerization Supervisor: Karthik Cisneros Indications: Chest Pain Impression: Study quality was fair due to body habitus and high level of subdiaphragmatic uptake on the stress images. The left ventricle is mildly dilated. Gated LVEF = 66%. Small sized, mild intensity, reversible perfusion defect in the basal-mid inferior wall. Findings suggestive of reversible myocardial ischemia. There is mild transient ischemic dilatation (TID), which is non-specific but can be seen in the setting of 3-vessel coronary artery disease. Recommend cardiology consultation. Ordering physician notified of abnormal results via [email or web address] message. History: Diabetes Stress Test Summary: Stress Test Type: Pharmacologic Regadenoson 0.4mg/5ml given IV Baseline Information: Initial Heart Rate: 71 Blood Pressure: 128/70 Stress Information: Test Terminated Due to (primary): Completed Protocol Maximum Blood Pressure: 124/60 Maximum Heart Rate: 82 Percent Maximum Heart Rate Achieved: 50 Double Product: 10,168 Symptoms: Shortness of breath Nuclear Summary: SPECT myocardial perfusion imaging using Tc99m Sestamibi given intravenously was performed at rest and following cardiac stress testing. The resting images were obtained following initial dose of 34.2 mCi. Following stress an additional dose of 32.5 mCi was given at peak exercise or 30 seconds post regadenoson infusion. Findings: Stress Note * Resting ECG demonstrated sinus rhythm, incomplete RBBB, low voltage in precordial leads. * No baseline arrhythmias were noted. * Patient had no chest pain during stress. * No arrhythmias were noted during stress. * No significant ECG changes with regadenoson. Hemodynamic responses * Normal hemodynamic responses to pharmacologic stress. Study Quality * Study quality was fair due to body habitus and high level of subdiaphragmatic uptake on the stress images. Gated EF % * Gated LVEF = 66%. Left Ventricle * The left ventricle is mildly dilated. * Small sized, mild intensity, reversible perfusion defect in the basal-mid inferior wall. Findings suggestive of reversible myocardial ischemia. * All other segmental perfusion normal in rest and stress. TID * There is mild transient ischemic dilatation (TID), which is non-specific but can be seen in the setting of 3-vessel coronary artery disease. Updated by Elia Benson MD, FACC on 11/02/2016 12:07:10 PM electronically signed on 11/02/2016 12:08:16 PM with status of Final
--- NOTE | 2016-11-02 13:06 | Event Note ---
Date of Encounter: 11/02/16 Time of Encounter: 12:30 - Cardiology Event Note Per cardiology: Stress test abnormal with small sized, mild intensity reversible perfusion defect in basal-mid inferior wall. Gated EF 66%. Discussed LHC with patient. Risks versus benefits of LHC explained to patient. Patient agreeable for LHC. Of note, patient's BP 150-170s systolic. Of note, patient did eat some crackers and drank half a pop after stress, aware. Will add beta dewayne. Further recommendations pending LHC.
--- NOTE | 2016-11-02 13:10 | Pre-Sedation Evaluation ---
Pre-sedation evaluation - Pre-sedation checklist Date of procedure: 11/02/16 Procedure: [facility] Recent Vitals: Last Vital Signs Temp 98.4 F 11/02/16 11:10 Pulse 72 11/02/16 11:10 Resp 16 11/02/16 11:10 BP 164/96 11/02/16 11:10 Pulse Ox 96 11/02/16 11:10 H&P (including ROS) documented in medical record: Yes Previous reaction to sedatives/anesthetics: No Dietary Status: NPO after Midnight Airway Assessment: Patient can open mouth completely, TMJ function normal ASA Classification *see protocol: CLASS II-Mild systemic disease Plan of Care: Pt appropriate candidate for procedure/moderate/conscious sedation , Risks/benefits of procedure/sedation discussed w/ patient/family
[2016-11-02] MEDS ORDERED: 0.9 % Sodium Chloride 1,000 ML ONE ×2 (13:20→13:33)
[2016-11-02] MEDS ORDERED: Verapamil 5 MG/2 ML VIAL ONE (13:20)
[2016-11-02] MEDS ORDERED: Heparin 1,000 UNITS/500 mL NS 500 ML ONE (13:21)
[2016-11-02] MEDS ORDERED: *HR* Heparin 10,000 UNIT/10 ML VIAL ONE (13:21)
[2016-11-02] MEDS ORDERED: Nitroglycerin 1,000 MCG/10 ML VIAL IV ONE (13:21)
[2016-11-02] MEDS ORDERED: *HR* Midazolam HCl 2 MG/2 ML VIAL ONE (13:33)
[2016-11-02] MEDS ORDERED: *HR* FentaNYL (PF) 100 MCG/2 ML VIAL ONE (13:33)
--- NOTE | 2016-11-02 13:49 | Internal Med Progress Note ---
<Elia Calles Emanuel - Last Filed: 11/02/16 13:46> Date of Encounter: 11/02/16 Time of Encounter: 13:46 - Assessment and plan (1) Chest pain Current Visit: Yes Status: Acute Assessment and plan: Chest pain-free at this time. EKG reviewed and showed some ST changes in the inferior leads, troponins negative. Echo showed EF of 60-65%, moderate LV diastolic dysfunction, biatrial moderate dilatation. Cardiac stress test showed a small size, mild intensity, reversible perfusion defect in the basal mid inferior wall.patient will go for cardiac cath today. Continue aspirin, statin. Qualifiers: Chest pain type: other chest pain Qualified Code(s): R07.89 - Other chest pain; R07.8 - Other chest pain (2) Diabetes Current Visit: Yes Status: Acute Assessment and plan: Blood sugars are under good control. Hemoglobin A1c was 6.0. Continue with low -dose sliding scale as needed. Qualifiers: Diabetes mellitus type: type 2 Diabetes mellitus complication status: without complication Diabetes mellitus terminal clerk insulin use: without terminal clerk use Qualified Code(s): E11.9 - Type 2 diabetes mellitus without complications (3) Obstructive sleep apnea Current Visit: Yes Status: Acute Assessment and plan: Continue CPAP at night. (4) Bipolar disorder Current Visit: Yes Status: Acute Assessment and plan: Patient has a history of bipolar disorder on Geodon and lithium. Apparently when the patient has been out of his medications in the past he has had psychotic breaks. No evidence of psychosis at this time. Continue home medications. We will continue to monitor. Minimize interruptions at night. Qualifiers: Active/Remission status: in remission of unspecified degree Qualified Code( s): F31.70 - Bipolar disorder, currently in remission, most recent episode unspecified (5) DVT prophylaxis Current Visit: Yes Status: Acute Assessment and plan: Lovenox 40 mg subcutaneous daily. - Subjective Interval history: Patient seen and examined at bedside. Patient has no complaints at this time. He states he feels good. He denies chest pain, shortness of breath, lower extremity swelling. - Constitutional Vitals: Temp Pulse Resp BP Pulse Ox 98.4 F 72 16 164/96 96 11/02/16 11:10 11/02/16 11:10 11/02/16 11:10 11/02/16 11:10 11/02/16 11:10 General appearance: Present: A&O X 3, morbidly obese, no acute distress - Respiratory Respiratory exam: Present: CTAB. Absent: rales, rhonchi, wheezes - Cardiovascular Cardiovascular exam: Present: RRR. Absent: gallop, rubs, systolic murmur - GI/Abdominal GI/Abdominal exam: Present: normal bowel sounds, soft. Absent: distended, tenderness - Extremities Exam Extremities exam: Present: pedal edema (Trace), warm. Absent: tenderness - Psychiatric Psychiatric exam: Present: normal affect, normal mood. Absent: agitated, anxious Internal Medicine: Result - Labs CBC & Chem 7: 11/01/16 00:25 11/01/16 00:25 - ABG Interpretation ABG results: PT/INR, D-dimer PT 12.3 Seconds (9.4-12.1) H 10/31/16 10:35 Consult Discharge Plan - Plan Referrals: Kevin Underwood MD [Partnered Physician] - 11/10/16 2:00 pm <Fernando Mary - Last Filed: 11/02/16 15:02> Date of Encounter: 11/02/16 - Constitutional Vitals: Temp Pulse Resp BP Pulse Ox 98.4 F 62 16 146/77 95 11/02/16 11:10 11/02/16 14:45 11/02/16 11:10 11/02/16 14:45 11/02/16 14:45 Internal Medicine: Result - Labs CBC & Chem 7: 11/01/16 00:25 11/01/16 00:25 - ABG Interpretation ABG results: PT/INR, D-dimer PT 12.3 Seconds (9.4-12.1) H 10/31/16 10:35 - Attending Attestation I examined this patient and my medical decision-making was reviewed with the LIQUEFIED PETROLEUM GASFITTER/PA/Advanced Practice Nurse/Resident Physician. I agree with the documented findings, disposition and treatment plan as described except to the extent set forth below. cardiology recommendations appreciated.
--- NOTE | 2016-11-02 14:14 | Invasive Diagnostic Lab Proc ---
Name: Seth Lam Date of Study: 11/02/2016 Date: 1960 Ht: 68.1in Medical Record#: [id number] Age: 55 Wt: 335.10lb Gender: Male BSA: 2.55 Order #: [id number] BMI: 50.79 Physicians Procedure Physician: Gavino Patel MD, [facility] Referring MD: Referring MD: Staff Name Position Time In Macie Morales RN Roper Operator 01:21 PM Lila East RT (R) Scrub 01:21 PM Baljinder East RT (R) Monitor 01:21 PM Indications Indication Abnormal Test - Stress Procedures Performed Procedure L HRT ARTERY/VENTRICLE ANGIO Pre-Procedure Checklist Informed consent is complete signed and on chart. H\\T\\P is on chart. ID band is on and ID verified with patient. Patient NPO for procedure The procedure was described for the patient and questions were answered. Blood Pressure: 164/96 ECG is on chart. Rhythm: NSR Plan of Care Patient will tolerate the procedure without complications. Adequate level of comfort will be maintained. Hemodynamics will remain stable Patient will recover from procedure without complications. Respiratory function will be maintained. Cardiac rhythm will remain stable. Patient temperature will be maintained. Patient and/or family have verbalized understanding of the procedure. Patient Education Chief Complaint/Reason for Test: Cardiac Cath Developmental Category: Adult (18-64 years) Developmentally Appropriate for Age: Yes Learning Barriers: None Education Needs: Procedure Education Method: Verbal Information Taught: Cardiac Cath Educational Evaluation: Able to repeat information Intravenous Access Time IV Size Location DC'd Fluid/Drip Rate Units RN 01:15 PM 18g 1 4" Patent On Arrival Rt Antecubital 01:15 PM 18g 1 1/4" Patent On Arrival Lt Antecubital 0.9NaCl 25 ml/hr Macie Morales RN Allergies NKDA Vital Signs Time BP (mmHg) HR (bpm) O2 Sat. RR (bpm) LOC 01:16 PM 164 / 96 72 96 % 16 5 = Fully awake and oriented or at pre-proc level 01:28 PM / % 5 = Fully awake and oriented or at pre-proc level 01:28 PM / % 4 = Oriented but drowsy 01:43 PM / % 4 = Oriented but drowsy 01:35 PM 151 / 87 67 95 % 01:40 PM 149 / 85 73 94 % 01:45 PM 153 / 83 74 92 % 01:50 PM 144 / 89 73 94 % 17 01:56 PM 125 / 65 143 93 % 16 02:00 PM 145 / 76 72 95 % 53 Procedural Medications Time Medication Dose Units Method Given By 01:37 PM Versed 2 mg Intravenous Maice Morales RN 01:37 PM Fentanyl 50 mcg Intravenous Macie Morales RN 01:37 PM Oxygen 2 L/min nasal cannula Macie Morales RN 01:52 PM Lidocaine 2% 0.5 ml Subcutaneous Gavino Patel MD, FACC 01:54 PM Heparin 4000 units Nitroglycerin 200 mcg Verapamil 2.5 mg Intraarterial Gavino Patel MD, FACC ASA Classification: CLASS II- Mild systemic disease (i.e. well-controlled diabetes, hypertension, asthma, cigarette smoking) Jen Score Preprocedure Postprocedure Activity 2- Moves 4 extremities sustained head lift Activity 2- Moves 4 extremities sustained head lift Circulation 2- SBP +/= 20 points of pre-anesthetic level Circulation 2- SBP +/= 20 points of pre-anesthetic level Consciousness 2- Awake and alert oriented x 3 Consciousness 2- Awake and alert oriented x 3 O2 Saturation 1- Needs O2 inhalation to maintain O2 saturation of 90% O2 Saturation 1- Needs O2 inhalation to maintain O2 saturation of 90% Respiratory 2- Able to deep breathe and cough well Respiratory 2- Able to deep breathe and cough well Total Score 9 Total Score 9 Contrast Agent: Isovue Diagnostic Contrast: 58 ml Total Contrast: 58 ml Fluoro Dose: 241 mGy Procedure Log Time Note Enter By 01:21 PM Macie Morales RN Position: Roper Operator Time in: 13:21 01:21 PM Lila East RT (R) Position: Scrub Time in: 13:21 01:21 PM Baljinder East RT (R) Position: Monitor Time in: 13:21 01:28 PM Pt arrived to concrete laborer 2 at 13:28 :28 PM Patient charges- Angio tray pack, Navilyst 3mm J, Pulse Oximetry and ACIST tubing and transducer 01:28 PM Case Delayed No :28 PM Time: 13:28 Patient comfortable and pain free: Yes : PM Time: 13:28LOC: 5 = Fully awake and oriented or at pre-proc level PM Procedure start 13:: PM Physician arrived 13: PM ASA Class CLASS II- Mild systemic disease (i.e. well-controlled diabetes, hypertension, asthma, cigarette smoking) : PM Meet and greet completed : PM Sign in performed according to hospital policy. :30 PM CathStat :34 PM Vitals capture started with the following parameters, Patient=Adult, Interval=5 min, Initial Dnbprnob=886 mmHg, Deflation Rate=5 mmHg, Cuff placed on Right Arm 01:34 PM Recorded ECG: HR=70 Condition=Condition 1 01:35 PM HR=67 bpm, FDEN=512/87 mmhg, SpO2=95.0 %, Jen=10 01:36 PM Hair removed from procedure site in procedure lab using clippers. Right wrist prepped with Chloraprep by Lila East RT (R), safety strap applied then patient was draped. Skin intact. :36 PM Hair removed from procedure site in procedure lab using clippers. Right groin prepped with Chloraprep by Lila East RT (R), safety strap applied then patient was draped. Skin intact. :37 PM Time: 13:37 Versed 2 mg Intravenous Given by Macie Morales RN :37 PM Time: 13:37 Fentanyl 50 mcg Intravenous Given by Macie Morales RN :37 PM Time: 13:37 Oxygen on at 2 L/min per nasal cannula by Macie Morales RN :40 PM HR=73 bpm, VMBK=724/85 mmhg, SpO2=94.0 % 01:41 PM Pressure channel 1 zero failed. 01:41 PM Pressure channel 1 zero failed. 01:41 PM Pressure channel 1 zero failed. 01:41 PM Pressure channel 1 zero failed. 01:42 PM Pressure channel 1 zeroed. :43 PM Time: 13:28 Patient comfortable and pain free: Yes 43 PM Time: 13:28LOC: 4 = Oriented but drowsy 01:45 PM HR=74 bpm, YDNS=434/83 mmhg, SpO2=92.0 % 01:50 PM HR=73 bpm, OVOH=011/89 mmhg, SpO2=94.0 %, Resp=17 B/min 01:51 PM Time out performed according to hospital policy :53 PM Time: 13:52 0.5 ml Lidocaine 2% to right radial Subcutaneous Given by Gavino Patel MD, [facility] 01:53 PM Access obtained by percutaneous puncture. 6Fr 11cm Terumo Glidesheath sheath placed in right Radial artery. [id number] 01:54 PM 0.035 260cm Navilyst 3mmJ wire [id number] 01:54 PM Time: 13:54 Patient given 4,000 units Heparin, 200 mcg Nitroglycerin, and 2.5 mg Verapamil Intraarterial by Gavino Patel MD, [facility] 01:54 PM 5Fr TIG catheter inserted over the wire [facility] 01:55 PM Catheter selectively placed in left ventricle [email or web address] 01:55 PM Bolus angiogram of left Ventricle complete: 10 ml/sec for a total of 30 mls 01:56 PM NX=085 bpm, MLGI=796/65 mmhg, SpO2=93.0 %, Resp=16 B/min 01:56 PM Pressure channel 1 zeroed. 01:56 PM Recorded Pressure: LV, HR=73, Condition=Condition 1 (Left Ventricle) LV 65/2/6 01:57 PM Recorded Pressure: LV, Ao, HR=45, Condition=Condition 1 (Left Ventricle) LV 131/18/21, (Aorta) Ao 126/34/81 01:57 PM Recorded Pressure: Ao, HR=78, Condition=Condition 1 (Aorta) Ao 116/89/102 01:57 PM RCA angiography performed in multiple views. 01:58 PM LCA angiography performed in multiple views. [email or web address] 01:58 PM Recorded Pressure: Ao, HR=76, Condition=Condition 1 (Aorta) Ao 117/86/101 01:58 PM Time: 13:43 Patient comfortable and pain free: :58 PM Time: 13:43LOC: 4 = Oriented but drowsy 01:59 PM Coronary Dominance: Co-dominant [email or web address] 14:59 PM Catheter removed 02:00 PM Procedure completed at 14:00 [email or web address] 02:00 PM Isovue 370 - 200ml,1 Bottle(s) used. [email or web address] 02:00 PM Post ECG NSR [email or web address] 02:00 PM Post Blood Pressure 125/65 [email or web address] 02:00 PM Arterial sheath pulled, Vasc Band closure device used and was Successful S/N. [email or web address] 02:00 PM HR=72 bpm, GXBD=982/76 mmhg, SpO2=95.0 %, Resp=53 B/min 02:01 PM 13 ml air in Vasc Band. [email or web address] 02:01 PM Sign out completed: Radiation Dose 240.95 mGy Fluoro Time: 1.0 Isovue 370 - 200ml contrast 58 ml given by Gavino Patel MD, FACC. Complications: NoneCardiac Rehab Consult needed: NoConfirmed administered medications: Yes [email or web address] 02:01 PM 14:01 Post Pulses Rt Radial 1+ [email or web address] 02:02 PM Information taught Cardiac Cath and Vasc Band [email or web address] 02:02 PM Education needs Procedure, Plan of Care, and Disease Process [email or web address] 02:02 PM Learning barriers :Sedated [email or web address] 02:02 PM Education Methods Verbal [email or web address] 02:02 PM Education evaluation Needs further instruction [email or web address] 02:02 PM Site status No bleeding/hematoma - Rt Wrist as reported by Lila East RT (R) at 14:02 [email or web address] 02:02 PM Delay to floor No [email or web address] 02:02 PM Complications: None [email or web address] 02:02 PM Fluoro Time: 1 [email or web address] 02:03 PM Isovue 370 - 200ml contrast 58 ml given by Gavino Patel MD, FACC. [email or web address] 02:03 PM Radiation Dose 240.95 mGy [email or web address] 02:05 PM Vitals capture stopped. 02:06 PM Report given to brian FIELDS Pt taken to E Room #25. 14:05 [email or web address] 02:07 PM Family none here. [email or web address] 02:07 PM Patient out of room: 14:07 [email or web address] Complications Complication None None Hemodynamics Pressures Site Systolic/A Wave Diastolic/V Wave Mean LV 65 2 6 LV 131 18 21 AO 126 34 81 AO 116 89 102 AO 117 86 101 Post Procedure Information Blood Pressure: 125/65 mmHg Rhythm: NSR Post procedural instructions were given Closure Device Time Device Success/Fail 11/02/2016 2:01:00 PM vasc band Successful Site Checks Time Location Status Staff Sheath In? Note 02:02 PM Rt Wrist No bleeding/hematoma Lila East RT (R) Pulses Time Site Pre-Procedure Post-Procedure Note 11/02/2016 1:16:00 PM Bilateral DP \\T\\ PT 1+ 11/02/2016 1:16:00 PM Bilateral radial 1+ 2:01:00 PM Rt Radial 1+ Updated by Baljinder East RT (R) on 11/02/2016 2:07:56 PM Baljinder East RT electronically signed on 11/02/2016 2:08:22 PM with status of Final
--- NOTE | 2016-11-02 14:35 | Event Note ---
Date of Encounter: 11/02/16 Time of Encounter: 14:34 - Cardiology Event Note Per discussion with , no intervention needed. Cardiology will sign off and will follow up in outpatient setting. Follow up set.
[2016-11-02] MEDS: Lithium Carbonate 300 MG CAPSULE PO SCH (22:39)
[2016-11-02] MEDS: Ziprasidone 80 MG CAPSULE PO SCH (22:39)
[2016-11-03 06:05] VITALS: BP 121/63
[2016-11-03 06:41] LABS: Basophils % 0.3 %; Eosinophils # 0.2 K/mcL (0.0-0.6); Eosinophils % 2.2 %; Hematocrit 37.2 % (37.5-50.1); Immature Granulocytes % 0.3 % (0-4); Lymphocytes # 1.5 K/mcL (0.6-4.6); Lymphocytes % 20.6 %; Mean Corpuscular HGB Conc 32.3 g/dL (31.6-35.5); Mean Corpuscular Hemoglobin 30.2 pg (28.0-33.3); Mean Corpuscular Volume 93.5 fL (83.0-100.0); Mean Platelet Volume 11.1 fL (9.4-12.4); Monocytes # 0.4 K/mcL (0.0-1.3); Monocytes % 5.9 %; Neutrophils # 5.2 K/mcL (1.6-8.9); Platelet Count 207 K/mcL (140-400); Red Blood Count 3.98 M/mcL (4.19-5.50); Red Cell Distribution Width 13.8 % (11.5-14.5); Segmented Neutrophils % 70.7 %
[2016-11-03 06:57] LABS: BUN/Creatinine Ratio 16 (6-26); Blood Urea Nitrogen 14 mg/dL (8-26); Calcium 10.7 mg/dL (8.6-10.8); Carbon Dioxide 25 mEq/L (19-29); Chloride 107 mEq/L (98-109); Glucose 101 mg/dL (70-99); Osmolality,Calculated 289 (280-300); Potassium 3.9 mEq/L (3.5-4.5); Sodium 139 mEq/L (136-145); eGFR For African Americans > 60 (> 60); eGFR For Non-African Americans > 60 (> 60)
[2016-11-03] MEDS: Insulin LISPRO 300 UNITS/3 ML VIAL SQ SCH (10:10)
[2016-11-03] MEDS: Ziprasidone 20 MG CAPSULE PO SCH (10:11)
[2016-11-03] MEDS: Aspirin 81 MG TAB.CHEW PO SCH (10:11)
[2016-11-03] MEDS: *HR* Enoxaparin 40 MG/0.4 ML SYRINGE SQ SCH (10:11)
--- NOTE | 2016-11-03 10:26 | Discharge Summary ---
<Elia Calles - Last Filed: 11/03/16 10:22> Date of Encounter: 11/03/16 Time of Encounter: 10:22 - Discharge Diagnosis (1) Chest pain Priority: Primary Status: Resolved Qualifiers: Chest pain type: other chest pain Qualified Code(s): R07.89 - Other chest pain; R07.8 - Other chest pain (2) Diabetes Priority: Secondary Status: Acute Qualifiers: Diabetes mellitus type: type 2 Diabetes mellitus complication status: without complication Diabetes mellitus long-term insulin use: without bed bug exterminator use Qualified Code(s): E11.9 - Type 2 diabetes mellitus without complications (3) Obstructive sleep apnea Priority: Secondary Status: Chronic (4) Bipolar disorder Priority: Secondary Status: Chronic Qualifiers: Active/Remission status: in remission of unspecified degree Qualified Code( s): F31.70 - Bipolar disorder, currently in remission, most recent episode unspecified (5) DVT prophylaxis Priority: Secondary Status: Resolved - Discharge Medications Prescriptions: Atorvastatin [Lipitor] 40 mg PO HS #30 tablet [place] Carbonate 900 mg PO HS #30 capsule Metoprolol [Lopressor] 12.5 mg PO BID #60 tablet Ziprasidone [Geodon] 160 mg PO HS #30 capsule Ziprasidone HCl [Geodon] 60 mg PO QAM #30 capsule Home Medications: Aspirin 81 mg PO DAILY 07/29/15 [History] Cholecalciferol (Vitamin D3) [Vitamin D3] 5,000 unit PO DAILY 07/29/15 [History] Metformin HCl [Glucophage] 1,000 mg PO DAILY 07/29/15 [History] Oxygen 2 l NS HS 10/31/16 [History] Atorvastatin [Lipitor] 40 mg PO HS #30 tablet 11/03/16 [Rx] [place] Carbonate 900 mg PO HS #30 capsule 11/03/16 [Rx] Metoprolol [Lopressor] 12.5 mg PO BID #60 tablet 11/03/16 [Rx] Ziprasidone HCl [Geodon] 60 mg PO QAM #30 capsule 11/03/16 [Rx] Ziprasidone [Geodon] 160 mg PO HS #30 capsule 11/03/16 [Rx] Allergies/Adverse Reactions: Allergies No Known Allergies Allergy (Verified 10/31/16 09:58) Procedures/tests Complete & Pending: Procedures Performed prior 72 hours Category Date Time Status CL Cardiac Catheterization [CL] Routine Process Safety Engineering Technologist 11/02/16 13:03 Ordered NM travis perf SPECT multi [NM] Routine Exams 11/01/16 Taken EV echocardiogram Stat Y 10/31/16 11:50 Completed EV venous imaging LE BI Routine Y 10/31/16 13:22 Completed SP pharm nuclear stress Routine Y 11/01/16 07:44 Completed Date of admission: 10/31/16 11:45 Primary care physician: PCP NO Consults: 11/01/16 19:35 Consult to Hospital Intern [CONS] Routine Reason for SW Consult: discharge planning 11/02/16 12:10 Consult to Cardiology [CONS] Routine Comment: Consulting Provider: Cardiology Allie Reason for Consult: Abnormal Stress Call Completed: Yes Discharging clinician: Elia Calles Anticipated date of discharge: 11/03/16 - Patient Status Disposition: Home, Self-Care Condition: Fair Functional capacity at discharge: independent ambulation Overall status at discharge: patient is back to baseline - Discharge Instructions Instructions: Metoprolol (By mouth), [place] (By mouth), Atorvastatin (By mouth ), Ziprasidone (By mouth), Myocardial Infarction (DC), Chest Pain (DC), Mood Disorders (DC), Diabetes Mellitus Type 2 in Adults (DC) Follow Up With: Kevin Underwood MD [Partnered Physician] - 11/10/16 2:00 pm Additional Instructions: Please follow up with your primary care physician. Please resume your home medications. Please start taking a cholesterol medication, atorvastatin daily. Please start taking a blood pressure medication, metoprolol, twice a day. Please return for any new or worsening symptoms. - Diet and Activity Activity: increase activity as tolerated Diet: diabetic diet, low fat, low cholesterol Interval History: Patient seen and examined at bedside. Patient has no complaints. Patient states that he feels pretty good today. Patient denies chest pain, shortness of breath, diaphoresis. Hospital course: Mr. Lam is a 55 year old male with history of diabetes, bipolar disorder presented with an abnormal EKG. Patient was seen in urgent care for medication refills on his psychiatric medications and a EKG was performed to check his QT interval and an incidental finding of ST segment changes were noted so the patient was transported to the hospital for further evaluation. Patient underwent today cardiac stress test that revealed a mild reversible perfusion defect in the inferior wall. Patient then underwent cardiac catheterization which revealed no lesions requiring intervention. Patient was chest pain-free throughout his entire hospital stay. The patient will be discharged home in stable condition. - Time Spent with Patient Total time spent providing and/or coordinating discharge services: - Constitutional Vitals: Temp Pulse Resp BP Pulse Ox 98.2 F 59 16 121/63 94 11/03/16 06:04 11/03/16 06:04 11/03/16 06:04 11/03/16 06:04 11/03/16 06:04 General appearance: Present: A&O X 3, morbidly obese, no acute distress - Respiratory Respiratory exam: Present: CTAB. Absent: rales, rhonchi, wheezes - Cardiovascular Cardiovascular exam: Present: RRR. Absent: gallop, rubs, systolic murmur - GI/Abdominal GI/Abdominal exam: Present: normal bowel sounds, soft. Absent: distended, tenderness - Extremities Exam Extremities exam: Present: pedal edema (Trace), warm. Absent: tenderness - Neurological Exam Neurological exam: Present: alert, CN II-XII intact, oriented X3, no focal deficits - Psychiatric Psychiatric exam: Present: normal affect, normal mood. Absent: agitated, anxious, depressed <Fernando Mary P - Last Filed: 11/03/16 16:09> Date of Encounter: 11/03/16 Procedures/tests Complete & Pending: Procedures Performed prior 72 hours Category Date Time Status CL Cardiac Catheterization [CL] Routine Process Safety Engineering Technologist 11/02/16 13:03 Completed NM travis perf SPECT multi [NM] Routine Exams 11/01/16 Taken SP pharm nuclear stress Routine Y 11/01/16 07:44 Completed Date of admission: 10/31/16 11:45 Primary care physician: PCP NO Consults: 11/01/16 19:35 Consult to Hospital Intern [CONS] Routine Reason for SW Consult: discharge planning 11/02/16 12:10 Consult to Cardiology [CONS] Routine Comment: Consulting Provider: Cardiology Allie Reason for Consult: Abnormal Stress Call Completed: Yes Hospital course: Mr. Lam is a 55 year old male - Time Spent with Patient Total time spent providing and/or coordinating discharge services: - Constitutional Vitals: Temp Pulse Resp BP Pulse Ox 98.2 F 59 16 121/63 94 11/03/16 06:04 11/03/16 06:04 11/03/16 06:04 11/03/16 06:04 11/03/16 09:00 - Attending Attestation I examined this patient and my medical decision-making was reviewed with the CREDIT RISK ANALYST/PA/Advanced Practice Nurse/Resident Physician. I agree with the documented findings, disposition and treatment plan as described except to the extent set forth below.
--- NOTE | 2016-11-03 14:27 | Invasive Diagnostic Lab ---
Name: Seth Lam Date of Study: 11/02/2016 Date: 1960 Ht: 172.7 cm /68.1 in Medical Record#: [id number] Age: 55 Wt: 152.3 kg / 335.10 lb Account/Order#: [id number] Gender: Male BSA: 2.55 Order #: [id number] Fluoro Dose: 241 mGy BMI: 50.79 Procedure Physician: Gavino Patel MD, FACC Referring MD: Referring MD: Procedures Performed: LEFT HEART CATH Indications: Abnormal Test - Stress Impressions: Coronary arteries are essentially normal. The left ventricle is normal and has normal contractility EF 55% Recommendations: Optimal medical therapy of patient's disease. Aggressive risk factor modification. History/Risk Factors: DVT abnormal stress test Diabetes Hypertension Dyslipidemia Procedure Access obtained in the right Radial artery by percutaneous puncture Complications: None, None Contrast: Isovue 58ml Closure Device: vasc band Hemodynamics: Pressures Site Systolic/ A Wave Diastolic/ V Wave End Diastolic/ Mean HR LV 65 2 6 73 LV 131 18 21 70 AO 126 34 81 39 AO 116 89 102 78 AO 117 86 101 76 LV Ventriculography Ejection Method: LV Gram Ejection Fraction: 55% Wall Motion: RICHARDS Anterobasal Normal Anterolateral Normal Apical: Normal Inferoapical Normal Inferobasal Normal Coronary Dominance: Co-dominant Lesion Findings/Interventions * Left Main Coronary Artery The LMCA is angiographically free of disease. * Left Anterior Descending The LAD has luminal irregularities The 1st Diagonal is angiographically free of disease. * Circumflex The Circumflex has luminal irregularities The 1st Marginal is angiographically free of disease. The Left PDA is angiographically free of disease. * Right Coronary Artery The RCA has luminal irregularities The Right PDA is angiographically free of disease. Updated by Baljinder ROSE (R) on 11/02/2016 2:06:59 PM Gavino Patel MD, FACC electronically signed on 11/03/2016 2:23:39 PM with status of Final
--- NOTE | 2016-11-03 16:31 | Electrocardiograph Report ---
[place] [id number] Test Date: 2016-10-31 Pat Name: Seth Lam Department: 105 Room: 2NE25 Gender: M Impregnator: LUIS : 1960 Requested By: Ivis Harding Order Number: [id number] Reading MD: Ivis Vazquez Measurements Intervals [place] Rate: 68 P: 29 DE: 162 QRS: 38 QRSD: 112 T: 57 QT: 410 QTc: 427 Interpretive Statements SINUS RHYTHM INCOMPLETE RIGHT BUNDLE BRANCH BLOCK NONSPECIFIC ST ABNORMALITIES Electronically Signed On 11-03-2016 16:30:17 EDT by Ivis Vazquez
== END 2016-11-03 11:57 | disposition home or self-care (01) ==
LOC: EMEROO 09:49 → 2NENU 09:49
PROVIDERS: ADMIT Internal Medicine; ATTEND Internal Medicine

== ENCOUNTER 2020-09-27 23:32 | Observation (INO) ==
[2020-09-28] MEDS ORDERED: Morphine Sulfate 2 MG/ML SYRINGE IVP ONE (01:41)
[2020-09-28 01:55] LABS: Bilirubin,Urine Negative (Negative); Blood,Urine Large (Negative); Clarity,Urine Turbid (Clear); Color,Urine Light-Yellow (Yellow); Glucose,Urine (UA) Normal (Normal); Hyaline Casts,Urine Few per lpf (None Seen); Ketones,Urine Negative (Negative); Leukocyte Esterase,Urine Small (Negative); Mucus,Urine Few per lpf (None-Few); Nitrite,Urine Negative (Negative); PH,Urine 6.5 pH Units (5.0-8.0); Protein,Urine Trace mg/dL (Neg-Trace); RBC,Urine TNTC per hpf (0-3); Specific Gravity,Urine 1.016 (1.010-1.025); Squamous Epithelial Cell,Urine Few per hpf (None-Few); Urobilinogen,Urine Normal (Normal); WBC,Urine 30-50 per hpf (0-3)
[2020-09-28 02:08] LABS: Basophils % 0.3 %; Eosinophils # 0.1 K/mcL (0.0-0.6); Eosinophils % 1.1 %; Hematocrit 38.8 % (37.5-50.1); Hemoglobin 12.5 g/dL (12.9-16.9); Immature Granulocytes % 0.1 % (0-4); Lymphocytes # 2.1 K/mcL (0.6-4.6); Lymphocytes % 28.8 %; Mean Corpuscular HGB Conc 32.2 g/dL (31.6-35.5); Mean Platelet Volume 10.5 fL (9.4-12.4); Monocytes # 0.5 K/mcL (0.0-1.3); Monocytes % 6.6 %; Neutrophils # 4.5 K/mcL (1.6-8.9); Platelet Count 141 K/mcL (140-400); Red Blood Count 4.17 M/mcL (4.19-5.50); Red Cell Distribution Width 13.8 % (11.5-14.5); Segmented Neutrophils % 63.1 %; White Blood Count 7.1 K/mcL (4.3-11.1)
[2020-09-28 02:28] LABS: Alanine Aminotransferase 27 Units/L (7-52); Albumin/Globulin Ratio 1.5 (1.1-2.2); Alkaline Phosphatase 74 Units/L (34-104); Aspartate Amino Transferase 24 Units/L (13-39); BUN/Creatinine Ratio 17 (6-26); Bilirubin,Direct 0.4 mg/dL (0.0-0.2); Bilirubin,Indirect 1.7 mg/dL (0.0-1.0); Bilirubin,Total 2.1 mg/dL (0.3-1.0); Blood Urea Nitrogen 15 mg/dL (6-20); Calcium 10.3 mg/dL (8.6-10.3); Carbon Dioxide 28 mEq/L (23-29); Chloride 106 mEq/L (98-107); Globulin 2.6 g/dL (2.4-3.5); Glucose 101 mg/dL (70-105); Lipase 18 Units/L (11-82); Osmolality,Calculated 289 (280-300); Potassium 4.1 mEq/L (3.5-5.1); Sodium 139 mEq/L (136-145); Total Protein 6.6 g/dL (6.4-8.9); eGFR For African Americans > 60 (> 60); eGFR For Non-African Americans > 60 (> 60)
[2020-09-28] MEDS ORDERED: cefTRIAXone 1,000 MG in 0.9 % Sodium Chloride Mini Bag 100 ML IVPB ONE (02:46)
[2020-09-28] MEDS ORDERED: Ondansetron 4 MG/2 ML VIAL IVP PRN ×2 (03:57→13:22)
[2020-09-28] MEDS ORDERED: Naloxone 0.4 MG/ML INJ IVP PRN ×2 (03:57→13:22)
[2020-09-28] MEDS ORDERED: Melatonin 3 MG TABLET PO PRN ×2 (03:57→13:22)
[2020-09-28] MEDS ORDERED: *HR* OxyCODONE Immed Rel 5 MG TABLET PO PRN ×2 (03:57→13:22)
[2020-09-28] MEDS ORDERED: Acetaminophen 325 MG TABLET PO PRN ×2 (03:57→13:22)
[2020-09-28] MEDS ORDERED: *HR* HYDROcodone/Acet 5/325 mg TABLET PO PRN ×2 (03:57→13:22)
[2020-09-28] MEDS ORDERED: *HR* Dextrose 50 % in Water (Vial) 50 ML VIAL IVP PRN ×2 (03:59→13:22)
[2020-09-28] MEDS ORDERED: Dextrose Gel 15 GM/37.5 ML TUBE PO PRN ×4 (03:59→13:22)
[2020-09-28] MEDS ORDERED: D5% in Water 1,000 ML IVC PRN ×2 (03:59→13:22)
[2020-09-28] MEDS ORDERED: 0.9 % Sodium Chloride 1,000 ML IVC SCH (04:00)
[2020-09-28 05:33] LABS: Adenovirus Not Detected (Not Detect); Bordetella Pertussis Not Detected (Not Detect); Chlamydophila pneumoniae Not Detected (Not Detect); Coronavirus 229E Not Detected (Not Detect); Coronavirus HKU1 Not Detected (Not Detect); Coronavirus NL63 Not Detected (Not Detect); Coronavirus OC43 Not Detected (Not Detect); Human Metapneumovirus Not Detected (Not Detect); Human Rhinovirus/Enterovirus Not Detected (Not Detect); Influenza A Subtype 2009 H1 Not Detected (Not Detect); Influenza B Not Detected (Not Detect); Mycoplasma pneumoniae Not Detected (Not Detect); Parainfluenza Virus 1 Not Detected (Not Detect); Parainfluenza Virus 2 Not Detected (Not Detect); Parainfluenza Virus 3 Not Detected (Not Detect); Parainfluenza Virus 4 Not Detected (Not Detect); Respiratory Syncytial Virus Not Detected (Not Detect); SARS-CoV-2 Not Detected (Not Detect)
[2020-09-28] MEDS: Insulin LISPRO 300 UNITS/3 ML VIAL SUBQ SCH ×3 (05:43→18:51)
[2020-09-28] MEDS ORDERED: Isovue-300 50ML VIAL ONE (07:11)
[2020-09-28] MEDS ORDERED: *HR* Propofol 200 MG/20 ML VIAL IVP ONE ×2 (11:14)
[2020-09-28] MEDS ORDERED: *HR* FentaNYL (PF) 100 MCG/2 ML VIAL ONE (11:14)
[2020-09-28] MEDS ORDERED: *HR* Succinylcholine 200 MG/10 ML VIAL IVP ONE (11:17)
[2020-09-28] MEDS ORDERED: Ondansetron 4 MG/2 ML VIAL ONE (11:18)
[2020-09-28] MEDS ORDERED: Lidocaine -MPF 4% 5 ML AMPUL ONE (11:19)
[2020-09-28] MEDS ORDERED: Acetaminophen IV 1,000 MG/100 ML BAG IVPB ONE (11:35)
[2020-09-28] MEDS: 0.9 % Sodium Chloride 1,000 ML IVC SCH ×2 (16:58→20:57)
[2020-09-28] MEDS ORDERED: Ziprasidone 80 MG CAPSULE PO SCH ×2 (21:00)
[2020-09-28] MEDS ORDERED: Ziprasidone 20 MG CAPSULE PO SCH (21:00)
[2020-09-29] MEDS: Insulin LISPRO 300 UNITS/3 ML VIAL SUBQ SCH ×3 (01:00→11:16)
[2020-09-29 06:38] LABS: Basophils % 0.1 %; Hematocrit 41.4 % (37.5-50.1); Hemoglobin 13.4 g/dL (12.9-16.9); Immature Granulocytes % 0.4 % (0-4); Lymphocytes # 0.7 K/mcL (0.6-4.6); Lymphocytes % 6.2 %; Mean Corpuscular HGB Conc 32.4 g/dL (31.6-35.5); Mean Corpuscular Hemoglobin 29.9 pg (28.0-33.3); Mean Corpuscular Volume 92.4 fL (83.0-100.0); Mean Platelet Volume 10.9 fL (9.4-12.4); Monocytes # 0.5 K/mcL (0.0-1.3); Monocytes % 4.5 %; Neutrophils # 9.6 K/mcL (1.6-8.9); Platelet Count 176 K/mcL (140-400); Red Blood Count 4.48 M/mcL (4.19-5.50); Red Cell Distribution Width 13.7 % (11.5-14.5); Segmented Neutrophils % 88.8 %
[2020-09-29 06:44] LABS: White Blood Count 10.8 K/mcL (4.3-11.1)
[2020-09-29 06:51] LABS: Alanine Aminotransferase 30 Units/L (7-52); Albumin 4.5 g/dL (3.5-5.7); Albumin/Globulin Ratio 1.5 (1.1-2.2); Alkaline Phosphatase 79 Units/L (34-104); Aspartate Amino Transferase 37 Units/L (13-39); BUN/Creatinine Ratio 24 (6-26); Bilirubin,Total 2.7 mg/dL (0.3-1.0); Blood Urea Nitrogen 22 mg/dL (6-20); Calcium 10.3 mg/dL (8.6-10.3); Carbon Dioxide 28 mEq/L (23-29); Chloride 103 mEq/L (98-107); Glucose 132 mg/dL (70-105); Osmolality,Calculated 287 (280-300); Sodium 136 mEq/L (136-145); Total Protein 7.5 g/dL (6.4-8.9); eGFR For African Americans > 60 (> 60); eGFR For Non-African Americans > 60 (> 60)
[2020-09-29] MEDS ORDERED: Ziprasidone 20 MG CAPSULE PO SCH (08:45)
[2020-09-29] MEDS ORDERED: Aspirin 81 MG TAB.CHEW PO SCH ×2 (09:00)
[2020-09-29] MEDS ORDERED: cefTRIAXone 1,000 MG in Water for inj. (sterile) 10 ML IVP SCH (09:00)
[2020-09-29] MEDS ORDERED: Ampicillin 2 GM in 0.9 % Sodium Chloride Mini Bag 100 ML IVPB ONE (09:16)
[2020-09-29 11:08] VITALS: BP 99/58
[2020-09-29] MEDS ORDERED: Piperacillin/Tazobactam 3.375 GM in 0.9 % Sodium Chloride Mini Bag 100 ML IVPB SCH (16:00)
[2020-09-29] MEDS ORDERED: Insulin LISPRO 300 UNITS/3 ML VIAL SUBQ SCH (21:00)
== END 2020-09-29 12:54 | disposition home or self-care (01) ==
LOC: 3ANU 23:32 → EMEROOARM 23:32 → SUATTDRO 09-28 03:48 → 3ANU 09-28 04:45
PROVIDERS: ADMIT Internal Medicine; ATTEND Family Medicine